=== PATIENT | male | born 1960 | race Caucasian/White ===

== ENCOUNTER 2018-05-16 12:07 | Inpatient (IN) ==
--- NOTE | 2018-05-16 09:43 | Discharge Summary ---
- NOTES TO OUTPATIENT PROVIDER Notes to Outpatient Provider: aCUTE BLOOD LOSS ANEMIA - FOLLOW UP H/H NEXT WEEK Orders not resulted at time of discharge: Pending orders 05/16/18 08:19 XR hip complete LT [XR] Routine H/H [Hemoglobin and Hematocrit] [HEME] Routine Date of Encounter: 05/19/18 Time of Encounter: 16:51 - Discharge Diagnosis (1) Status post total hip replacement, left Priority: Primary Status: Acute Comments: Opsite dressing, leave intact until first post-operative visit. If dressing becomes >50% saturated, contact office, remove dressing and place appropriate dressing in its place. Do not allow for dressing to get wet. Zipline/[place] in place, plan to remove at post-operative day #14-16. Total Joint Precautions x 6 weeks Apply cold therapy wrap 3-6x/day for 20 minutes at a time. Encourage ambulation throughout the day Use Incentive spirometer 10x/hour. Elevate affected extremity above heart as tolerated. Brace: Wear hip abductor brace at night x 6 weeks. (2) Arthritis of left hip Priority: Primary Status: Acute (3) Pacemaker Priority: Secondary Status: Chronic (4) Sick sinus syndrome Priority: Secondary Status: Chronic (5) HTN (hypertension) Priority: Secondary Status: Chronic Qualifiers: Hypertension type: essential hypertension Qualified Code(s): I10 - Essential (primary) hypertension (6) HLD (hyperlipidemia) Priority: Secondary Status: Chronic Qualifiers: Hyperlipidemia type: unspecified Qualified Code(s): E78.5 - Hyperlipidemia, unspecified (7) History of CVA (cerebrovascular accident) Priority: Secondary Status: Chronic Comments: 2013 (8) Obesity Priority: Secondary Status: Chronic Qualifiers: Obesity type: due to excess calories Obesity classification: adult class 1 (BMI 30 - 34.9) Serious obesity comorbidity presence: without serious comorbidity Body mass index: BMI 30.0-30.9 Qualified Code(s): E66.09 - Other obesity due to excess calories; Z68.30 - Body mass index (BMI) 30.0-30.9, adult (9) CAD (coronary artery disease) Priority: Secondary Status: Chronic Qualifiers: Coronary Disease-Associated Artery/Lesion type: false pass artery [place] vs. transplanted heart: false pass heart Associated angina: without angina Qualified Code(s): I25.10 - Atherosclerotic heart disease of false pass coronary artery without angina pectoris - Hospital Course Hospital course: Mr. Dillard is a 58 year old male, POD#3 - left THR 05/16 Patient seen at bedside, without complaints. A&O x 3 05/18 - Bleeding from incision - isreal placed. Afebrile, vital signs stable. Vital Signs Temp Pulse Resp BP Pulse Ox 05/19/18 11:00 97.9 F 87 16 138/79 96 05/19/18 06:41 97.6 F 83 16 144/87 98 05/19/18 03:01 97.9 F 79 16 146/84 97 05/19/18 00:02 98.5 F 82 16 150/89 99 05/18/18 18:38 98.2 F 97 15 130/79 95 Intake and Output 05/19/18 05/19/18 05/19/18 07:59 15:59 23:59 Intake Total 800 / 800 200 / 200 Output Total 900 / 900 Balance -100 / -100 200 / 200 Intake: Oral 800 / 800 200 / 200 Output: Urine 900 / 900 Other: Weight 94.5 kg Patient Weight 05/19/18 23:59 Weight 94.5 kg Labs reviewed. H/H - stable, asymptomatic ACUTE BLOOD LOSS ANEMIA - START IRON Short CBC 05/19/18 Range/Units 06:58 Hgb 9.5 L (12.9-16.9) g/dL Hct 27.0 L (37.5-50.1) % BMP 05/19/18 Range/Units 06:58 Sodium 133 L (136-145) mEq/L Potassium 3.4 L (3.5-5.1) mEq/L Chloride 99 (98-107) mEq/L Carbon Dioxide 27 (23-29) mEq/L BUN 9 (8-23) mg/dL Creatinine 0.71 (0.70-1.30) mg/dL Glucose 109 H (70-105) mg/dL Calcium 8.7 (8.6-10.3) mg/dL Pain control: adequate 05/17 - Added Flexeril 10mg TID Participating in PT. All questions and concerns addressed. Educated on use of incentive spirometer. Encouraged ambulation and proper hydration. Patient educated on post-operative restrictions and post-operative care. Assessment and plan: Continue with postoperative care Discharge plan: change BACK TO HOME TODAY, discharge TODAY WITH OP - Time Spent with Patient Total time spent providing and/or coordinating discharge services: - Discharge Medications Prescriptions: Ferrous Sulfate [Iron] 325 mg PO DAILY #30 tablet Home Medications: Aspirin Enteric Coated [Aspirin EC] 325 mg PO BID #20 tablet. 05/16/18 [Rx] Atorvastatin [Lipitor] 40 mg PO HS 05/16/18 [History] Cyclobenzaprine HCl 10 mg PO BID PRN 05/16/18 [History] Docusate [Colace] 100 mg PO BID 10 Days #20 capsule 05/16/18 [Rx] Losartan Potassium 25 mg PO DAILY 05/16/18 [History] Meclizine HCl [Verticalm] 25 mg PO Q8H PRN 05/16/18 [History] Metoprolol Tartrate 50 mg PO BID 05/16/18 [History] Omeprazole [PriLOSEC] 40 mg PO DAILY 05/16/18 [History] OxyCODONE Immed Rel [Roxicodone 5 MG] 5 mg PO Q6HR PRN 7 Days #28 tablet 05/16/18 [Rx] hydroCHLOROthiazide [Hydrochlorothiazide] 25 mg PO DAILY 05/16/18 [History] Ferrous Sulfate [Iron] 325 mg PO DAILY #30 tablet 05/19/18 [Rx] Allergies/Adverse Reactions: Allergy/AdvReac Type Severity Reaction Status Date / Time acetaminophen [From Tylenol] AdvReac Gastrointestinal Verified 05/16/18 13:34 Upset Date of admission: 05/16/18 Primary care physician: CAROLYN Cadena Anticipated date of discharge: 05/19/18 - Patient Status Disposition: Home, Self-Care Condition: Good Functional capacity at discharge: uses cane/walker Overall status at discharge: patient is progressing back to baseline - Discharge Instructions Instructions: Total Hip Replacement (DC), Precautions after Total Joint Replacement Surgery (DC) Follow Up With: Shannon Mosquera CNP [Primary Care Provider] -
[2018-05-16] MEDS ORDERED: CeFAZolin Syr 2,000MG/20 ML 2,000 MG/20 ML SYRINGE IVPB ONE (12:31)
[2018-05-16] MEDS ORDERED: Lidocaine -MPF 2% 2 ML VIAL ONE (12:38)
[2018-05-16] MEDS ORDERED: Dexamethasone 4 MG/ML VIAL ONE (12:38)
[2018-05-16] MEDS ORDERED: *HR* FentaNYL (PF) 100 MCG/2 ML VIAL ONE (12:38)
[2018-05-16] MEDS ORDERED: *HR* Midazolam HCl 2 MG/2 ML VIAL ONE (12:38)
[2018-05-16] MEDS ORDERED: *HR* Propofol 200 MG/20 ML VIAL IVP ONE ×2 (12:38→14:46)
[2018-05-16] MEDS ORDERED: Ondansetron 4 MG/2 ML VIAL ONE (12:38)
[2018-05-16] MEDS ORDERED: *HR* Succinylcholine 200 MG/10 ML VIAL IVP ONE (12:38)
--- NOTE | 2018-05-16 12:38 | Anesthesia Evaluation PreOp ---
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 History: CVA (2012 - visual impairment only) Other Medical History: GERD (dysphagia - benign laryngeal prominence causing difficulty swallowing), Other (BMI 30) Anesthesia History: No Prior Anesthetic Complications Medications and Allergies Aspirin Enteric Coated [Aspirin EC] 325 mg PO BID #20 tablet.dr 05/16/18 [Rx] Docusate [Colace] 100 mg PO BID 10 Days #20 capsule 05/16/18 [Rx] OxyCODONE Immed Rel [Roxicodone 5 MG] 5 mg PO Q6HR PRN 7 Days #28 tablet 05/16/18 [Rx] Allergy/AdvReac Type Severity Reaction Status Date / Time acetaminophen [From Tylenol] Allergy Gastrointestinal Verified 05/11/18 09:27 Upset - Meds/Allergy Pre-op Review Medications Reviewed: Yes Allergies Reviewed: Yes Beta Blockers on Current Med List: Yes If Beta Blockers taken, Date/Time (Last Dose taken): 05-16-18 metoprolol attempted to swallow at 8:30 am Anesthesia Results - Labs Laboratory Tests 05/11/18 05/11/18 05/11/18 10:15 10:15 10:15 WBC 6.7 Hgb 15.5 Hct 44.8 Plt Count 317 PT 11.0 INR 1.0 APTT 29.6 Sodium 136 Potassium 4.0 Chloride 100 Carbon Dioxide 25 BUN 8 Creatinine 0.88 Est GFR ( Amer) > 60 Est GFR (Non-Af Amer) > 60 BUN/Creatinine Ratio 9 - Imaging EKG: image reviewed ( stress test EKG NSR) Additional studies: stress test: Indications: dyspnea, Coronary Artery Disease, Pre op Impression: No ischemia or infarct on perfusion study. Technical artifact present (fixed mid anterior perfusion defect of minimal size and mild intensity). Stress LVEF 69%. Pharmacologic stress ECG non-diagnostic for ischemia. Anesthesia Exam Last Vital Signs Temp 97.7 F 05/16/18 12:27 Pulse 86 05/16/18 12:27 Resp 18 12/10/18 12:27 BP 155/86 05/16/18 12:27 Pulse Ox 98 05/16/18 12:27 Weight: 92 kg NPO (# of Hours): > 8 hrs - HEENT Pupil (Motor): Pupils equal, EOMI Mallampati: III Teeth: Edentulous Oral Opening: Greater than 3 - WORKFORCE STAFFING ADVISOR LOC: Oriented - Cardiac Rhythm: Regular Murmur: None - Pulmonary Breath Sounds: bilateral Clear Respiratory Effort: Symmetrical Anesthesia Assess/Plan ASA Score: 3 Level of consciousness: Cooperative Anesthetic Plan: Spinal Monitoring Plan: Standard Monitors Recovery Plan: PACU
[2018-05-16] MEDS ORDERED: Ringers Solution, Lactated 1,000 ML IVC SCH ×2 (12:45→16:59)
--- NOTE | 2018-05-16 13:05 | History & Physical Report ---
Date of Encounter: 05/16/18 Time of Encounter: 13:05 24 Hour HP Update - Instructions Instructions: If the History and Physical is less than 30 days old and was completed prior to A.M. admission and or procedure and has NOT been updated on calendar day of procedure please complete this update prior to performing procedure. - Update Patient reports changes in Medical Condition: No Changes in examination, assessment, or condition: No Changes in Medication: No Preop tests/diagnostics Reviewed: Yes Surgery Remains Indicated: Yes Consent for Planned Operative Procedure(s) Verified: Yes - Pre-Operative Checklist Preoperative Checklist Indicated: No Prophylactic Antibiotic Ordered: Yes Is VTE Prophylaxis Indicated?: Yes
[2018-05-16] MEDS ORDERED: Lidocaine -MPF 1% 5 ML AMPUL ONE (13:22)
[2018-05-16] MEDS ORDERED: *HR* Morphine Sulfate/PF 10 MG/10 ML AMPUL ONE (13:22)
[2018-05-16] MEDS ORDERED: Ethanol\\Acetic Acid\\Na Ace\\Ben 1,000 ML IRRIG.SOLN IR ONE (13:33)
[2018-05-16] MEDS ORDERED: *HR* Meperidine 25 MG/ML SYRINGE IVP PRN (14:08)
[2018-05-16] MEDS ORDERED: *HR* OxyCODONE Immed Rel 5 MG TABLET PO PRN ×2 (14:08→16:59)
[2018-05-16] MEDS ORDERED: *HR* Promethazine 25 MG/ML VIAL IVP PRN ×2 (14:08→21:07)
[2018-05-16] MEDS ORDERED: Ondansetron 4 MG/2 ML VIAL IVP ONE (14:08)
[2018-05-16] MEDS ORDERED: *HR* Labetalol 20 MG/4 ML SYRINGE IVP PRN (14:08)
--- NOTE | 2018-05-16 14:13 | Anesthesia Procedures ---
Date of Encounter: 05/16/18 Time of Encounter: 13:30 Procedures: Anesthesia - Epidural/Spinal Patient ID/Chart reviewed: Yes Patient examined: Yes Consent Obtained: Yes Supplemental Oxygen: Nasal Cannula Supplemental Oxygen Rate (L/min): 3 Sedation: Versed (mg): 2 Sedation: Fentanyl (mcg): 50 Site Prep: 0.5% Chlorhexidine/Alcohol Patient position: upright Local Anesthetic: Lidocaine 1% Amount of Local Anesthetic used: 3 Interspace Used: L3-L4 Loss of Resistance (SHARATH): Yes Blood: No CSF: Yes Paresthesia: No Spinal Needle Gauge: 24 Spinal Dose: 2.5ml 0.5% marcaine with 200mcg duramorph
[2018-05-16] MEDS ORDERED: *HR* PHENYLEPHRINE 1,000 MCG/10 ML SYRINGE IVP ONE (14:19)
--- NOTE | 2018-05-16 14:54 | Orthopedic Operative Note ---
Date of procedure: 05/16/18 Pre-op diagnosis: Left hip arthritis Post-op diagnosis: same Procedure: Procedure: Left Total Hip Replacment robotic-assisted Estimated blood loss: 200 cc Hardware: Metal and polyethylene replacement. Maggi DM Cup: 58 cup Femoral size 12 stem Head:4 head with Shannon Procedural Notes: Grade 4 arthritic changes femoral head acetabular socket, procedure performed with robotic assistance. 5 degrees short as measured by preoperative CT scan Operative procedure: The patient was brought to the operating room and placed on the operating room table. After general anesthesia was administered the patient was placed in the lateral decubitus position with the operative leg up. All pressure points were padded appropriately and the head was stabilized in the neutral position. The operative extremity was prepped and draped in the sterile surgical fashion patient received IV antibiotic prior to skin incision. 3 Steinmann pins were placed in the iliac crest 3 cm proximal to the anterior superior iliac spine this was for the robotic-assisted sensor. This was done through a small 2 cm incision. A standard posterior approach is made to the operative hip, the incision was made through the skin and subcutaneous tissue hemostasis was obtained with Bovie cautery. Using careful sharp dissection the fascia was identified and incised exposing the external rotators. The greater trochanter was marked, and length was measured at this time utilizing robotic assistance. The external rotators were released off the greater trochanter and tagged with #2 FiberWire suture. The capsule was T'd open and the hip was brought into internal rotation. Patient noted to have grade 4 arthritic changes femoral head. The femoral neck cut was made at the appropriate level roughly 15 mm proximal to the lesser tr ochanter aced on preoperative templating. An anterior capsulotomy was performed for the anterior retractor. Soft tissues removed from the acetabulum. Patient noted to have grade 4 arthritic changes acetabulum. The acetabulum reference point was confirmed. The acetabulum was then mapped with robotic assistance. Based on the preoperative plan the acetabulum was reamed in one step with a 57 reamer. The 58 acetabulum was impacted with robotic assistance and 36 degrees of abduction and 17 degrees of anteversion. The hip was brought back in to internal rotation and prepared with the box cutt er followed by the canal finder followed by the reaming process to a size 11/12 broaching process in 20 degrees anteversion. It was broached up to the appropriate size 12 Trial reduction revealed leg lengths close to normal. The femoral implant was impacted in place in 20 degrees of anteversion. Trial reduction found the hip to be stable with 4 head and Shannon. The trials were removed and the real implants were impacted in place. The hip was reduced, patient had robotic confirmed leg length of 12 mm longer than the contralateral side. The hip had excellent stability with forward flexion to 90 degrees adduction of 30 degrees and internal rotation of 60 degrees. The hip had no shuck. The hip sat with an antibacterial solution. It was irrigated out with 2 L of pulse irrigation. The Steinmann pins were removed. The hip was closed by the PA. The deep tissue was irrigated and closed deep with #1 PDS suture superficially with 0 PDS suture and skin was closed with Dermabond and zip tie. The patient was placed in a sterile dressing and abduction pillow. The patient was extubated and transferred to the recovery room in stable condition. Anesthesia: spinal Surgeon: Jem Brandt Was there an promotions assistant present: Yes Information Security Engineer: Eve Echavarria Estimated blood loss (cc): 200 Condition: stable Disposition: PACU
[2018-05-16] MEDS ORDERED: Propofol 500 MG/50 ML INFUS..BTL ONE (15:11)
[2018-05-16] MEDS ORDERED: Temazepam 15 MG CAPSULE PO PRN (16:59)
[2018-05-16] MEDS ORDERED: *HR* OxyCODONE/APAP 5/325 TABLET PO PRN (16:59)
[2018-05-16] MEDS ORDERED: Sennosides 8.6 MG TABLET PO PRN (16:59)
[2018-05-16] MEDS ORDERED: MOM Conc 10 ML UD.LIQ PO PRN (16:59)
[2018-05-16] MEDS ORDERED: Naloxone 0.4 MG/ML INJ IVP PRN (16:59)
[2018-05-16] MEDS ORDERED: Ondansetron 4 MG/2 ML VIAL IVP PRN (16:59)
[2018-05-16] MEDS ORDERED: *HR* Enoxaparin 30 MG/0.3 ML SYRINGE SQ SCH (18:00)
[2018-05-16 18:23] LABS: Hematocrit 38.4 % (37.5-50.1)
[2018-05-16 18:24] LABS: Hemoglobin 13.2 g/dL (12.9-16.9)
[2018-05-16] MEDS: Ascorbic Acid 500 MG TABLET PO SCH (19:37)
[2018-05-16] MEDS: *HR* Enoxaparin 30 MG/0.3 ML SYRINGE SQ SCH (19:38)
[2018-05-16] MEDS ORDERED: OXYCODONE Oral CONC 10 MG/0.5 ML ORAL.SYG SL PRN (21:08)
[2018-05-16] MEDS: OXYCODONE Oral CONC 10 MG/0.5 ML ORAL.SYG SL PRN (22:44)
[2018-05-17] MEDS: OXYCODONE Oral CONC 10 MG/0.5 ML ORAL.SYG SL PRN ×2 (05:40→20:23)
[2018-05-17] MEDS: *HR* Enoxaparin 30 MG/0.3 ML SYRINGE SQ SCH ×2 (06:12→17:38)
--- NOTE | 2018-05-17 06:14 | Orthopedics Progress Note ---
Date of Encounter: 05/17/18 Time of Encounter: 06:13 Subjective Interval history: Patient was seen this morning doing well without complaints. Afebrile vital signs stable. Operative extremity: Neurovascularly intact Dressing bloody change and staple Calves nontender Assessment and plan: Continue with postoperative care hematocrit 38 Objective Vital signs: Vital Signs Temp Pulse Resp BP Pulse Ox 05/17/18 03:46 98.2 F 88 22 132/79 96 05/16/18 23:24 97.6 F 102 24 132/89 96 05/16/18 19:32 119 16 131/85 96 05/16/18 19:12 98.3 F 86 20 125/85 97 05/16/18 16:06 75 16 124/75 100 05/16/18 15:57 97.8 F 65 16 136/79 100 05/16/18 15:47 71 16 116/80 100 05/16/18 15:37 98.0 F 61 16 125/72 100 05/16/18 15:27 61 16 112/74 99 05/16/18 15:17 97.1 F L 62 16 116/90 100 05/16/18 13:20 72 16 139/87 100 05/16/18 12:27 97.7 F 86 18 155/86 98 Intake and Output 05/16/18 05/16/18 05/17/18 15:59 23:59 07:59 Intake Total 1180 / 1180 800 / 800 Output Total 200 / 200 400 / 400 150 / 150 Balance -200 / -200 780 / 780 650 / 650 Intake: IV Fluids 100 / 100 Ancef 2,000 MG In 0.9 % Sodium 100 / 100 Chloride 100 ML @ 200 mls/hr IVPB Q8H [facility] Rx#:[id number] Oral 1180 / 1180 700 / 700 Output: Urine 0 / 0 150 / 150 Estimated Blood Loss 200 / 200 Straight Cath 400 / 400 Other: Weight 92.079 kg 92.45 kg Patient Weight 05/17/18 23:59 Weight 92.45 kg - Labs CBC & BMP: 05/16/18 18:06 Consult Discharge Plan - Plan Referrals: Shannon Mosquera, OPTICAL TECHNICIAN [Primary Care Provider] -
--- NOTE | 2018-05-17 07:31 | Event Note ---
Date of Encounter: 05/17/18 Time of Encounter: 07:30 PCR - POD#. 1 - left THR 05/16 Patient seen at bedside, without complaints. A&O x 3 Bleeding from incision - isreal placed. Afebrile, vital signs stable. Vital Signs Temp Pulse Resp BP Pulse Ox 05/17/18 06:50 98.4 F 86 20 138/76 96 05/17/18 03:46 98.2 F 88 22 132/79 96 05/16/18 23:24 97.6 F 102 24 132/89 96 05/16/18 19:32 119 16 131/85 96 05/16/18 19:12 98.3 F 86 20 125/85 97 05/16/18 16:06 75 16 124/75 100 05/16/18 15:57 97.8 F 65 16 136/79 100 05/16/18 15:47 71 16 116/80 100 05/16/18 15:37 98.0 F 61 16 125/72 100 05/16/18 15:27 61 16 112/74 99 05/16/18 15:17 97.1 F L 62 16 116/90 100 05/16/18 13:20 72 16 139/87 100 05/16/18 12:27 97.7 F 86 18 155/86 98 Intake and Output 05/16/18 05/16/18 05/17/18 15:59 23:59 07:59 Intake Total 1180 / 1180 800 / 800 Output Total 200 / 200 400 / 400 150 / 150 Balance -200 / -200 780 / 780 650 / 650 Intake: IV Fluids 100 / 100 Ancef 2,000 MG In 0.9 % Sodium 100 / 100 Chloride 100 ML @ 200 mls/hr IVPB Q8H [facility] Rx#:[id number] Oral 1180 / 1180 700 / 700 Output: Urine 0 / 0 150 / 150 Estimated Blood Loss 200 / 200 Straight Cath 400 / 400 Other: Weight 92.079 kg 92.45 kg Patient Weight 05/17/18 23:59 Weight 92.45 kg Labs reviewed. H/H - stable, asymptomatic Pain control: adequate 05/17 - Added Flexeril 10mg TID Participating in PT. All questions and concerns addressed. Educated on use of incentive spirometer. Encouraged ambulation and proper hydration. Patient educated on post-operative restrictions and post-operative care. Assessment and plan: Continue with postoperative care Discharge plan: Home, with OP, discharge likely in AM on 05/18. . Short CBC 05/17/18 05/16/18 Range/Units 06:17 18:06 Hgb 11.0 L D 13.2 D (12.9-16.9) g/dL Hct 31.7 L 38.4 (37.5-50.1) %
[2018-05-17 07:40] LABS: Hematocrit 31.7 % (37.5-50.1)
[2018-05-17] MEDS: traMADol 50 MG TABLET PO PRN (08:13)
[2018-05-17] MEDS: hydroCHLOROthiazide 25 MG TABLET PO SCH (08:14)
[2018-05-17] MEDS: Ascorbic Acid 500 MG TABLET PO SCH ×2 (08:14→17:38)
[2018-05-17] MEDS: Multivit/Ca/Min/Fe/FA 1 TAB TABLET PO SCH (08:14)
[2018-05-17] MEDS: Aspirin Enteric Coated 81 MG Tablet PO SCH (08:14)
[2018-05-17 09:21] LABS: BUN/Creatinine Ratio 17 (6-26); Blood Urea Nitrogen 15 mg/dL (8-23); Calcium 8.9 mg/dL (8.6-10.3); Carbon Dioxide 26 mEq/L (23-29); Chloride 100 mEq/L (98-107); Glucose 122 mg/dL (70-105); Osmolality,Calculated 286 (280-300); Potassium 4.2 mEq/L (3.5-5.1); Sodium 137 mEq/L (136-145); eGFR For Non-African Americans > 60 (> 60)
[2018-05-18] MEDS: OXYCODONE Oral CONC 10 MG/0.5 ML ORAL.SYG SL PRN ×2 (03:27→20:52)
[2018-05-18] MEDS: *HR* Enoxaparin 30 MG/0.3 ML SYRINGE SQ SCH ×2 (05:27→17:04)
[2018-05-18 07:03] LABS: Hematocrit 30.8 % (37.5-50.1); Hemoglobin 10.6 g/dL (12.9-16.9)
[2018-05-18 07:11] LABS: BUN/Creatinine Ratio 12 (6-26); Blood Urea Nitrogen 10 mg/dL (8-23); Carbon Dioxide 29 mEq/L (23-29); Chloride 96 mEq/L (98-107); Glucose 114 mg/dL (70-105); Osmolality,Calculated 276 (280-300); Potassium 3.4 mEq/L (3.5-5.1); Sodium 133 mEq/L (136-145); eGFR For Non-African Americans > 60 (> 60)
[2018-05-18] MEDS: hydroCHLOROthiazide 25 MG TABLET PO SCH (07:44)
[2018-05-18] MEDS: Aspirin Enteric Coated 81 MG Tablet PO SCH (07:44)
[2018-05-18] MEDS: Multivit/Ca/Min/Fe/FA 1 TAB TABLET PO SCH (07:44)
[2018-05-18] MEDS: Ascorbic Acid 500 MG TABLET PO SCH ×2 (07:44→17:03)
--- NOTE | 2018-05-18 07:59 | Orthopedics Progress Note ---
Date of Encounter: 05/18/18 Time of Encounter: 07:59 Subjective Interval history: Patient was seen this morning doing well without complaints. Afebrile vital signs stable. Operative extremity: Neurovascularly intact Dressing bloody change and staple Calves nontender Assessment and plan: Continue with postoperative care hematocrit 3 Hematocrit 30 Objective Vital signs: Vital Signs Temp Pulse Resp BP Pulse Ox 05/18/18 06:29 98.1 F 83 16 134/78 96 05/18/18 03:24 98.3 F 77 15 127/83 96 05/17/18 23:18 98.3 F 81 16 124/82 96 05/17/18 18:17 98.0 F 83 15 134/79 93 05/17/18 15:05 98.2 F 83 16 134/86 97 Intake and Output 05/17/18 05/17/18 05/18/18 15:59 23:59 07:59 Intake Total 480 / 480 150 / 150 100 / 100 Output Total 650 / 650 1750 / 1750 250 / 250 Balance -170 / -170 -1600 / -1600 -150 / -150 Intake: Oral 480 / 480 150 / 150 100 / 100 Output: Urine 650 / 650 1750 / 1750 250 / 250 Other: Meal Lunch Percent of Meal Consumed 50% Weight 93.5 kg Patient Weight 05/18/18 23:59 Weight 93.5 kg - Labs CBC & BMP: 05/18/18 05:38 05/18/18 05:38 Labs: Abnormal lab results Hgb 10.6 g/dL (12.9-16.9) L 05/18/18 05:38 Hct 30.8 % (37.5-50.1) L 05/18/18 05:38 Sodium 133 mEq/L (136-145) L 05/18/18 05:38 Potassium 3.4 mEq/L (3.5-5.1) L 05/18/18 05:38 Chloride 96 mEq/L (98-107) L 05/18/18 05:38 Glucose 114 mg/dL (70-105) H 05/18/18 05:38 Calculated Osmolality 276 (280-300) L 05/18/18 05:38 Consult Discharge Plan - Plan Referrals: Shannon Mosquera, LAUNDROMAT MANAGER [Primary Care Provider] -
--- NOTE | 2018-05-18 13:01 | Event Note ---
Date of Encounter: 05/18/18 Time of Encounter: 12:58 PCR - POD#2 - left THR 05/16 Patient seen at bedside, without complaints. A&O x 3 05/18 - Bleeding from incision - isreal placed. Afebrile, vital signs stable. Labs reviewed. H/H - stable, asymptomatic Pain control: adequate 05/17 - Added Flexeril 10mg TID Participating in PT. All questions and concerns addressed. Educated on use of incentive spirometer. Encouraged ambulation and proper hydration. Patient educated on post-operative restrictions and post-operative care. Assessment and plan: Continue with postoperative care Discharge plan: change to ECF placement, discharge likely Sunday 05/20 Vital Signs Temp Pulse Resp BP Pulse Ox 05/18/18 10:04 98.4 F 87 16 139/81 95 05/18/18 06:29 98.1 F 83 16 134/78 96 05/18/18 03:24 98.3 F 77 15 127/83 96 05/17/18 23:18 98.3 F 81 16 124/82 96 05/17/18 18:17 98.0 F 83 15 134/79 93 05/17/18 15:05 98.2 F 83 16 134/86 97 Intake and Output 05/17/18 05/18/18 05/18/18 23:59 07:59 15:59 Intake Total 150 / 150 100 / 100 240 / 240 Output Total 1750 / 1750 550 / 550 Balance -1600 / -1600 -450 / -450 240 / 240 Intake: Oral 150 / 150 100 / 100 240 / 240 Output: Urine 1750 / 1750 550 / 550 Other: # Voids 1 Weight 93.5 kg Patient Weight 05/18/18 23:59 Weight 93.5 kg Short CBC 05/18/18 Range/Units 05:38 Hgb 10.6 L (12.9-16.9) g/dL Hct 30.8 L (37.5-50.1) % BMP 05/18/18 Range/Units 05:38 Sodium 133 L (136-145) mEq/L Potassium 3.4 L (3.5-5.1) mEq/L Chloride 96 L (98-107) mEq/L Carbon Dioxide 29 (23-29) mEq/L BUN 10 (8-23) mg/dL Creatinine 0.81 (0.70-1.30) mg/dL Glucose 114 H (70-105) mg/dL Calcium 9.0 (8.6-10.3) mg/dL .
--- NOTE | 2018-05-18 13:06 | Physician Discharge Referral ---
ExtendedCare Referral Info Transfer To: [facility] Provider in Charge: Provider in Charge after Transfer: PCP Institutional Level of Care: Skilled - Diagnosis (1) Status post total hip replacement, left Priority: Primary Status: Acute (2) Arthritis of left hip Priority: Primary Status: Acute (3) Pacemaker Priority: Secondary Status: Chronic (4) Sick sinus syndrome Priority: Secondary Status: Chronic (5) HTN (hypertension) Priority: Secondary Status: Chronic (6) HLD (hyperlipidemia) Priority: Secondary Status: Chronic (7) History of CVA (cerebrovascular accident) Priority: Secondary Status: Chronic (8) Obesity Priority: Secondary Status: Chronic (9) CAD (coronary artery disease) Priority: Secondary Status: Chronic Expected Duration of Placement: < 30 days Prognosis: Good Aware of Diagnosis: Patient Aware of Prognosis: Patient - Transfer Medications Home Medications: Aspirin Enteric Coated [Aspirin EC] 325 mg PO BID #20 tablet. 05/16/18 [Rx] Aspirin [Lo-Dose Aspirin EC] 81 mg PO DAILY 05/16/18 [History] Atorvastatin [Lipitor] 40 mg PO HS 05/16/18 [History] Cyclobenzaprine HCl 10 mg PO BID PRN 05/16/18 [History] Docusate [Colace] 100 mg PO BID 10 Days #20 capsule 05/16/18 [Rx] Losartan Potassium 25 mg PO DAILY 05/16/18 [History] Meclizine HCl [Verticalm] 25 mg PO Q8H PRN 05/16/18 [History] Metoprolol Tartrate 50 mg PO BID 05/16/18 [History] Omeprazole [PriLOSEC] 40 mg PO DAILY 05/16/18 [History] OxyCODONE Immed Rel [Roxicodone 5 MG] 5 mg PO Q6HR PRN 7 Days #28 tablet 05/16/18 [Rx] hydroCHLOROthiazide [Hydrochlorothiazide] 25 mg PO DAILY 05/16/18 [History] Allergies/Adverse Reactions: Allergy/AdvReac Type Severity Reaction Status Date / Time acetaminophen [From Tylenol] AdvReac Gastrointestinal Verified 05/16/18 13:34 Upset - Respiratory Orders Smoking Cessation: Smoking cessation has been advised. For more information, call the [place] Tobacco Quit Line at 5-020-SDQU-NOW. - Mobility Orders Chair, Ambulate - Rehabiliation Orders Rehab Potential: Good Rehab Orders: ROM Exercises, Evaluation for Physical Therapy, Evaluation for Occupational Therapy Other: Opsite dressing, leave intact until first post-operative visit. If dressing becomes >50% saturated, contact office, remove dressing and place appropriate dressing in its place. Do not allow for dressing to get wet. Zipline/Aracelis in place, plan to remove at post-operative day #14-16. Total Joint Precautions x 6 weeks Apply cold therapy wrap 3-6x/day for 20 minutes at a time. Encourage ambulation throughout the day Use Incentive spirometer 10x/hour. Elevate affected extremity above heart as tolerated. Brace: Wear hip abductor brace at night x 6 weeks. - Treatments Skin tear care topically daily PRN per policy, May check for fecal impaction rectally daily PRN, Fleet enema rectally every other day PRN cleansing purposes - Diet Orders Regular CERTIFICATION: I certify that the transfer of the above named patient to an Extended Care Facility is necessary for the continuing treatment of the diagnosis listed. The above information is true and accurate reflection of patient's current condition. Confidential - Redisclosure prohibited without a patient's written consent.
[2018-05-19] MEDS: OXYCODONE Oral CONC 10 MG/0.5 ML ORAL.SYG SL PRN ×2 (03:08→09:07)
[2018-05-19] MEDS: traMADol 50 MG TABLET PO PRN (05:41)
[2018-05-19] MEDS: *HR* Enoxaparin 30 MG/0.3 ML SYRINGE SQ SCH (05:42)
[2018-05-19 07:27] LABS: Hemoglobin 9.5 g/dL (12.9-16.9)
[2018-05-19 07:41] LABS: BUN/Creatinine Ratio 13 (6-26); Blood Urea Nitrogen 9 mg/dL (8-23); Calcium 8.7 mg/dL (8.6-10.3); Carbon Dioxide 27 mEq/L (23-29); Chloride 99 mEq/L (98-107); Glucose 109 mg/dL (70-105); Osmolality,Calculated 275 (280-300); Potassium 3.4 mEq/L (3.5-5.1); Sodium 133 mEq/L (136-145); eGFR For Non-African Americans > 60 (> 60)
--- NOTE | 2018-05-19 08:23 | Orthopedics Progress Note ---
Date of Encounter: 05/19/18 Time of Encounter: 08:22 Subjective Interval history: Patient was seen this morning doing well without complaints. Afebrile vital signs stable. Operative extremity: Neurovascularly intact Dressing bloody change and staple Calves nontender Assessment and plan: Continue with postoperative care plan for discharge today Objective Vital signs: Vital Signs Temp Pulse Resp BP Pulse Ox 05/19/18 06:41 97.6 F 83 16 144/87 98 05/19/18 03:01 97.9 F 79 16 146/84 97 05/19/18 00:02 98.5 F 82 16 150/89 99 05/18/18 18:38 98.2 F 97 15 130/79 95 05/18/18 15:40 100.1 F H 88 16 129/73 98 05/18/18 10:04 98.4 F 87 16 139/81 95 Intake and Output 05/18/18 05/19/18 05/19/18 23:59 07:59 15:59 Intake Total 690 / 690 800 / 800 Output Total 800 / 800 900 / 900 Balance -110 / -110 -100 / -100 Intake: Oral 690 / 690 800 / 800 Output: Urine 800 / 800 900 / 900 Other: Meal Dinner Percent of Meal Consumed 100% Weight 94.5 kg Patient Weight 05/19/18 23:59 Weight 94.5 kg - Labs CBC & BMP: 05/19/18 06:58 05/19/18 06:58 Labs: Abnormal lab results Hgb 9.5 g/dL (12.9-16.9) L 05/19/18 06:58 Hct 27.0 % (37.5-50.1) L 05/19/18 06:58 Sodium 133 mEq/L (136-145) L 05/19/18 06:58 Potassium 3.4 mEq/L (3.5-5.1) L 05/19/18 06:58 Glucose 109 mg/dL (70-105) H 05/19/18 06:58 Calculated Osmolality 275 (280-300) L 05/19/18 06:58 Consult Discharge Plan - Plan Referrals: Shannon Mosquera, STAFF ASSISTANT [Primary Care Provider] -
[2018-05-19] MEDS: Multivit/Ca/Min/Fe/FA 1 TAB TABLET PO SCH (09:05)
[2018-05-19] MEDS: hydroCHLOROthiazide 25 MG TABLET PO SCH (09:05)
[2018-05-19] MEDS: Ascorbic Acid 500 MG TABLET PO SCH (09:06)
[2018-05-19] MEDS: Aspirin Enteric Coated 81 MG Tablet PO SCH (09:06)
[2018-05-19 12:22] VITALS: BP 138/79
== END 2018-05-19 13:09 | disposition home or self-care (01) | DRG 301 ==
LOC: SAMDAY 12:07 → 3NENU 16:17
PROVIDERS: ADMIT Orthopaedic Surgery; ATTEND Orthopaedic Surgery

== ENCOUNTER 2019-06-01 21:42 | Inpatient (IN) ==
[2019-06-02] MEDS ORDERED: Ondansetron ODT 4 MG TAB.RAPDIS SL PRN (05:34)
[2019-06-02] MEDS ORDERED: Nicotine 2 MG GUM BC PRN (05:34)
[2019-06-02] MEDS ORDERED: Naloxone 0.4 MG/ML INJ IVP PRN (05:34)
[2019-06-02] MEDS ORDERED: 0.9 % Sodium Chloride 1,000 ML IVC SCH (05:45)
[2019-06-02 06:15] LABS: Prothrombin Time 11.3 Seconds (9.4-12.1)
[2019-06-02 06:18] LABS: Basophils # 0.1 K/mcL (0.0-0.2); Basophils % 0.6 %; Hematocrit 39.6 % (37.5-50.1); Hemoglobin 14.3 g/dL (12.9-16.9); Immature Granulocytes % 0.3 % (0-4); Lymphocytes # 1.4 K/mcL (0.6-4.6); Lymphocytes % 14.8 %; Mean Corpuscular HGB Conc 36.1 g/dL (31.6-35.5); Mean Corpuscular Hemoglobin 32.6 pg (28.0-33.3); Mean Corpuscular Volume 90.2 fL (83.0-100.0); Mean Platelet Volume 11.2 fL (9.4-12.4); Monocytes # 0.9 K/mcL (0.0-1.3); Monocytes % 9.6 %; Neutrophils # 7.1 K/mcL (1.6-8.9); Platelet Count 237 K/mcL (140-400); Red Blood Count 4.39 M/mcL (4.19-5.50); Red Cell Distribution Width 12.2 % (11.5-14.5); Segmented Neutrophils % 74.7 %; White Blood Count 9.5 K/mcL (4.3-11.1)
[2019-06-02 06:29] LABS: Alanine Aminotransferase 17 Units/L (7-52); Albumin 4.2 g/dL (3.5-5.7); Albumin/Globulin Ratio 1.6 (1.1-2.2); Alkaline Phosphatase 59 Units/L (34-104); Aspartate Amino Transferase 19 Units/L (13-39); BUN/Creatinine Ratio 15 (6-26); Bilirubin,Total 1.1 mg/dL (0.3-1.0); Blood Urea Nitrogen 13 mg/dL (8-23); Calcium 9.5 mg/dL (8.6-10.3); Carbon Dioxide 26 mEq/L (23-29); Chloride 94 mEq/L (98-107); Globulin 2.7 g/dL (2.4-3.5); Glucose 91 mg/dL (70-105); Magnesium 2.2 mg/dL (1.6-2.6); Osmolality,Calculated 276 (280-300); Phosphorous 3.4 mg/dL (2.7-4.5); Potassium 3.9 mEq/L (3.5-5.1); Sodium 133 mEq/L (136-145); Total Protein 6.9 g/dL (6.4-8.9); eGFR For African Americans > 60 (> 60); eGFR For Non-African Americans > 60 (> 60)
[2019-06-02 06:33] LABS: Chol/HDL Ratio 5.1 (0-4.9); Cholesterol 185 mg/dL (< 200); HDL Cholesterol 36 mg/dL (40-59); LDL Cholesterol,Calculated 130 mg/dL (0-99); Triglycerides 97 mg/dL (< 150); Troponin I < 0.03 ng/mL (< 0.04)
[2019-06-02 06:42] LABS: Bilirubin,Urine Negative (Negative); Blood,Urine Negative (Negative); Clarity,Urine Clear (Clear); Color,Urine Yellow (Yellow); Glucose,Urine (UA) Normal (Normal); Ketones,Urine 40 mg/dL (Negative); Leukocyte Esterase,Urine Negative (Negative); Nitrite,Urine Negative (Negative); PH,Urine 6.5 pH Units (5.0-8.0); Protein,Urine Negative (Neg-Trace); Specific Gravity,Urine 1.006 (1.010-1.025); Urobilinogen,Urine Normal (Normal)
[2019-06-02] MEDS ORDERED: *HR* Enoxaparin 40 MG/0.4 ML SYRINGE SQ SCH (07:00)
[2019-06-02] MEDS: Potassium Chloride Elixir 20 MEQ/15 ML UDC PO SCH ×2 (09:47→20:21)
[2019-06-02] MEDS: Nicotine 14 MG PATCH.TD24 TD SCH (09:48)
[2019-06-02] MEDS: *HR* Heparin 5,000 UNIT/ML VIAL SQ SCH (19:19)
[2019-06-03] MEDS ORDERED: *HR* OxyCODONE Immed Rel 5 MG TABLET PO ONE (03:40)
[2019-06-03] MEDS: *HR* Heparin 5,000 UNIT/ML VIAL SQ SCH ×2 (05:52→18:05)
[2019-06-03 08:18] LABS: Estimated Average Glucose 94 mg/dl
[2019-06-03] MEDS: Nicotine 14 MG PATCH.TD24 TD SCH (08:19)
[2019-06-03] MEDS ORDERED: Ketorolac 15 MG/ML VIAL IVP PRN (11:41)
[2019-06-03] MEDS: *HR* OxyCODONE Immed Rel 5 MG TABLET PO PRN ×2 (13:51→20:17)
[2019-06-04] MEDS: *HR* OxyCODONE Immed Rel 5 MG TABLET PO PRN ×4 (02:11→20:29)
[2019-06-04] MEDS: *HR* Heparin 5,000 UNIT/ML VIAL SQ SCH ×2 (05:09→16:54)
[2019-06-04] MEDS: Nicotine 14 MG PATCH.TD24 TD SCH (08:07)
[2019-06-04 09:13] LABS: Hematocrit 39.9 % (37.5-50.1); Hemoglobin 14.3 g/dL (12.9-16.9); Mean Corpuscular HGB Conc 35.8 g/dL (31.6-35.5); Mean Corpuscular Volume 92.1 fL (83.0-100.0); Mean Platelet Volume 11.9 fL (9.4-12.4); Platelet Count 231 K/mcL (140-400); Red Blood Count 4.33 M/mcL (4.19-5.50); Red Cell Distribution Width 12.4 % (11.5-14.5); White Blood Count 8.4 K/mcL (4.3-11.1)
[2019-06-04] MEDS ORDERED: *HR* FentaNYL (PF) 100 MCG/2 ML VIAL IVP PRN (12:15)
[2019-06-04] MEDS ORDERED: Acetaminophen IV 1,000 MG/100 ML INFUS..BTL IVPB ONE (12:15)
[2019-06-04] MEDS ORDERED: *HR* Meperidine 25 MG/ML SYRINGE IVP PRN (12:16)
[2019-06-04] MEDS ORDERED: *HR* Promethazine 25 MG/ML VIAL IVP PRN (12:16)
[2019-06-04] MEDS ORDERED: Clindamycin 900 MG/50 ML 900 MG/50 ML IV.SOLN IVPB ONE (17:00)
[2019-06-04] MEDS ORDERED: *HR* FentaNYL (PF) 100 MCG/2 ML VIAL ONE (20:44)
[2019-06-04] MEDS ORDERED: *HR* Propofol 200 MG/20 ML VIAL IVP ONE (20:49)
[2019-06-04] MEDS ORDERED: *HR* Rocuronium Bromide 50 MG/5 ML VIAL ONE (22:50)
[2019-06-04] MEDS ORDERED: Ondansetron 4 MG/2 ML VIAL ONE (22:50)
[2019-06-04] MEDS ORDERED: *HR* Succinylcholine 200 MG/10 ML VIAL IVP ONE (22:50)
[2019-06-04] MEDS ORDERED: Dexamethasone 4 MG/ML VIAL ONE (22:50)
[2019-06-04] MEDS ORDERED: Lidocaine -MPF 2% 2 ML VIAL ONE ×2 (22:50)
[2019-06-04] MEDS ORDERED: EPHEDrine 50 MG/ML VIAL ONE (23:45)
[2019-06-05] MEDS ORDERED: *HR* Labetalol 20 MG/4 ML SYRINGE IVP PRN
[2019-06-05] MEDS ORDERED: Ondansetron 4 MG/2 ML VIAL IVP PRN
[2019-06-05] MEDS ORDERED: *HR* FentaNYL (PF) 100 MCG/2 ML VIAL ONE (00:28)
[2019-06-05] MEDS ORDERED: *HR* Labetalol 20 MG/4 ML SYRINGE IVP ONE (02:00)
[2019-06-05] MEDS: *HR* OxyCODONE Immed Rel 5 MG TABLET PO PRN ×4 (03:10→16:38)
[2019-06-05] MEDS: *HR* HYDROmorphone (PF) 1 MG/ML SYRINGE IVP PRN ×3 (03:13→03:42)
[2019-06-05] MEDS ORDERED: *HR* Meperidine 25 MG/ML SYRINGE IVP PRN (03:48)
[2019-06-05] MEDS ORDERED: *HR* FentaNYL (PF) 100 MCG/2 ML VIAL IVP PRN (03:48)
[2019-06-05] MEDS ORDERED: *HR* HYDROmorphone (PF) 1 MG/ML SYRINGE IVP PRN ×2 (03:48)
[2019-06-05] MEDS ORDERED: Nicotine 2 MG GUM BC PRN (03:48)
[2019-06-05] MEDS ORDERED: Acetaminophen IV 1,000 MG/100 ML INFUS..BTL IVPB ONE (03:48)
[2019-06-05] MEDS ORDERED: Naloxone 0.4 MG/ML INJ IVP PRN (03:48)
[2019-06-05] MEDS ORDERED: Ketorolac 15 MG/ML VIAL IVP PRN (03:48)
[2019-06-05] MEDS ORDERED: Ondansetron ODT 4 MG TAB.RAPDIS SL PRN (03:48)
[2019-06-05] MEDS ORDERED: *HR* Promethazine 25 MG/ML VIAL IVP PRN ×2 (03:48)
[2019-06-05] MEDS ORDERED: Ringers Solution, Lactated 1,000 ML ONE (03:52)
[2019-06-05 04:58] LABS: Hematocrit 35.9 % (37.5-50.1); Mean Corpuscular Hemoglobin 32.9 pg (28.0-33.3); Mean Corpuscular Volume 96.8 fL (83.0-100.0); Mean Platelet Volume 11.7 fL (9.4-12.4); Platelet Count 202 K/mcL (140-400); Red Blood Count 3.71 M/mcL (4.19-5.50); Red Cell Distribution Width 12.3 % (11.5-14.5); White Blood Count 9.7 K/mcL (4.3-11.1)
[2019-06-05 05:05] LABS: Hemoglobin 12.2 g/dL (12.9-16.9)
[2019-06-05] MEDS: *HR* Heparin 5,000 UNIT/ML VIAL SQ SCH ×2 (05:21→16:39)
[2019-06-05] MEDS ORDERED: ceFAZolin 2,000 MG in Water for inj. (sterile) 10 ML IVP SCH (08:00)
[2019-06-05] MEDS: Nicotine 14 MG PATCH.TD24 TD SCH (10:25)
[2019-06-05] MEDS ORDERED: *HR* OxyCODONE Immed Rel 5 MG TABLET PO SCH (21:00)
[2019-06-05] MEDS: *HR* HYDROcodone/Acet 5/325 mg TABLET PO PRN (23:13)
[2019-06-06] MEDS: *HR* OxyCODONE Immed Rel 5 MG TABLET PO PRN ×4 (01:21→23:46)
[2019-06-06] MEDS: *HR* HYDROcodone/Acet 5/325 mg TABLET PO PRN ×2 (04:49→20:47)
[2019-06-06] MEDS: *HR* Heparin 5,000 UNIT/ML VIAL SQ SCH ×2 (04:52→18:06)
[2019-06-06 07:27] LABS: BUN/Creatinine Ratio 18 (6-26); Blood Urea Nitrogen 18 mg/dL (8-23); Carbon Dioxide 27 mEq/L (23-29); Chloride 99 mEq/L (98-107); Glucose 113 mg/dL (70-105); Hemoglobin 11.4 g/dL (12.9-16.9); Immature Platelets 11.2 % (1.1-6.1); Mean Corpuscular HGB Conc 36.8 g/dL (31.6-35.5); Mean Corpuscular Hemoglobin 33.5 pg (28.0-33.3); Mean Corpuscular Volume 91.2 fL (83.0-100.0); Osmolality,Calculated 281 (280-300); Potassium 3.8 mEq/L (3.5-5.1); Red Blood Count 3.4 M/mcL (4.19-5.50); Red Cell Distribution Width 12.2 % (11.5-14.5); Sodium 134 mEq/L (136-145); White Blood Count 9.4 K/mcL (4.3-11.1); eGFR For African Americans > 60 (> 60); eGFR For Non-African Americans > 60 (> 60)
[2019-06-06] MEDS: Nicotine 14 MG PATCH.TD24 TD SCH (11:16)
[2019-06-07] MEDS: *HR* Heparin 5,000 UNIT/ML VIAL SQ SCH ×2 (05:43→16:16)
[2019-06-07] MEDS: *HR* OxyCODONE Immed Rel 5 MG TABLET PO PRN ×3 (09:30→19:38)
[2019-06-07] MEDS: Nicotine 14 MG PATCH.TD24 TD SCH (09:31)
[2019-06-07] MEDS: *HR* HYDROcodone/Acet 5/325 mg TABLET PO PRN (11:01)
[2019-06-07] MEDS ORDERED: *HR* HYDROmorphone 2 MG TABLET PO ONE (20:47)
[2019-06-08] MEDS: *HR* OxyCODONE Immed Rel 5 MG TABLET PO PRN ×5 (02:54→21:43)
[2019-06-08] MEDS: *HR* Heparin 5,000 UNIT/ML VIAL SQ SCH ×2 (05:18→17:17)
[2019-06-08] MEDS: Nicotine 14 MG PATCH.TD24 TD SCH (08:37)
[2019-06-09] MEDS: *HR* OxyCODONE Immed Rel 5 MG TABLET PO PRN ×5 (01:28→22:15)
[2019-06-09 01:42] LABS: Mean Platelet Volume 12.1 fL (9.4-12.4)
[2019-06-09 01:57] LABS: Hematocrit 35.6 % (37.5-50.1); Hemoglobin 12.7 g/dL (12.9-16.9); Mean Corpuscular HGB Conc 35.7 g/dL (31.6-35.5); Mean Corpuscular Volume 92.5 fL (83.0-100.0); Platelet Count 322 K/mcL (140-400); Red Blood Count 3.85 M/mcL (4.19-5.50); White Blood Count 9.4 K/mcL (4.3-11.1)
[2019-06-09 02:07] LABS: BUN/Creatinine Ratio 17 (6-26); Blood Urea Nitrogen 16 mg/dL (8-23); Calcium 9.9 mg/dL (8.6-10.3); Carbon Dioxide 23 mEq/L (23-29); Chloride 98 mEq/L (98-107); Glucose 111 mg/dL (70-105); Osmolality,Calculated 268 (280-300); Potassium 4.2 mEq/L (3.5-5.1); Sodium 128 mEq/L (136-145); eGFR For African Americans > 60 (> 60); eGFR For Non-African Americans > 60 (> 60)
[2019-06-09] MEDS: *HR* Heparin 5,000 UNIT/ML VIAL SQ SCH ×2 (05:20→17:31)
[2019-06-09] MEDS: Nicotine 14 MG PATCH.TD24 TD SCH (10:07)
[2019-06-09] MEDS: *HR* HYDROcodone/Acet 5/325 mg TABLET PO PRN (20:15)
[2019-06-10] MEDS: *HR* OxyCODONE Immed Rel 5 MG TABLET PO PRN ×4 (02:52→20:19)
[2019-06-10] MEDS ORDERED: *HR* FentaNYL (PF) 100 MCG/2 ML VIAL ONE ×2 (07:02→09:48)
[2019-06-10] MEDS ORDERED: Lidocaine -MPF 4% 5 ML AMPUL ONE (07:02)
[2019-06-10] MEDS ORDERED: *HR* Rocuronium Bromide 50 MG/5 ML VIAL ONE (07:02)
[2019-06-10] MEDS ORDERED: Lidocaine -MPF 2% 2 ML VIAL ONE (07:02)
[2019-06-10] MEDS ORDERED: Ondansetron 4 MG/2 ML VIAL ONE (07:02)
[2019-06-10] MEDS ORDERED: *HR* Propofol 200 MG/20 ML VIAL IVP ONE (07:02)
[2019-06-10] MEDS ORDERED: *HR* Midazolam HCl 2 MG/2 ML VIAL ONE (07:02)
[2019-06-10] MEDS ORDERED: *HR* Succinylcholine 200 MG/10 ML VIAL IVP ONE (07:02)
[2019-06-10] MEDS ORDERED: Dexamethasone 4 MG/ML VIAL ONE (07:02)
[2019-06-10] MEDS ORDERED: Clindamycin 900 MG/50 ML 900 MG/50 ML IV.SOLN IVPB ONE (07:40)
[2019-06-10] MEDS ORDERED: Ropivacaine/PF 0.5% 30 ML VIAL ONE (07:53)
[2019-06-10] MEDS ORDERED: Acetaminophen IV 1,000 MG/100 ML INFUS..BTL IVPB ONE (08:00)
[2019-06-10] MEDS ORDERED: Acetaminophen IV 1,000 MG/100 ML INFUS..BTL ONE (08:21)
[2019-06-10] MEDS ORDERED: *HR* Promethazine 25 MG/ML VIAL IVP PRN (10:34)
[2019-06-10] MEDS ORDERED: *HR* HYDROmorphone 2 MG TABLET PO PRN (10:34)
[2019-06-10] MEDS ORDERED: *HR* Labetalol 20 MG/4 ML SYRINGE IVP PRN (10:34)
[2019-06-10] MEDS ORDERED: *HR* OxyCODONE Immed Rel 5 MG TABLET PO PRN (10:34)
[2019-06-10] MEDS: *HR* HYDROmorphone (PF) 1 MG/ML SYRINGE IVP PRN ×2 (11:01→11:11)
[2019-06-10] MEDS ORDERED: Naloxone 0.4 MG/ML INJ IVP PRN (11:32)
[2019-06-10] MEDS ORDERED: Nicotine 2 MG GUM BC PRN (11:32)
[2019-06-10] MEDS ORDERED: Ondansetron ODT 4 MG TAB.RAPDIS SL PRN (11:32)
[2019-06-10] MEDS ORDERED: *HR* HYDROcodone/Acet 5/325 mg TABLET PO PRN (11:32)
[2019-06-10] MEDS: Clindamycin 900 MG/50 ML 900 MG/50 ML IV.SOLN IVPB SCH (16:01)
[2019-06-10 16:31] LABS: Hematocrit 34.5 % (37.5-50.1); Hemoglobin 12.3 g/dL (12.9-16.9); Mean Corpuscular HGB Conc 35.7 g/dL (31.6-35.5); Mean Corpuscular Hemoglobin 32.1 pg (28.0-33.3); Mean Corpuscular Volume 90.1 fL (83.0-100.0); Mean Platelet Volume 11.7 fL (9.4-12.4); Platelet Count 366 K/mcL (140-400); Red Blood Count 3.83 M/mcL (4.19-5.50); Red Cell Distribution Width 11.9 % (11.5-14.5)
[2019-06-10 16:43] LABS: BUN/Creatinine Ratio 20 (6-26); Blood Urea Nitrogen 19 mg/dL (8-23); Calcium 9.9 mg/dL (8.6-10.3); Carbon Dioxide 23 mEq/L (23-29); Chloride 94 mEq/L (98-107); Glucose 131 mg/dL (70-105); Osmolality,Calculated 272 (280-300); Potassium 4.3 mEq/L (3.5-5.1); Sodium 129 mEq/L (136-145); eGFR For African Americans > 60 (> 60); eGFR For Non-African Americans > 60 (> 60)
[2019-06-11] MEDS: *HR* OxyCODONE Immed Rel 5 MG TABLET PO PRN ×5 (00:13→18:10)
[2019-06-11] MEDS: Clindamycin 900 MG/50 ML 900 MG/50 ML IV.SOLN IVPB SCH ×2 (00:14→09:43)
[2019-06-11] MEDS: Artificial Tears SOLN 15 ML BOTTLE BOTH EYES SCH ×5 (00:37→21:40)
[2019-06-11 01:22] LABS: Hematocrit 31.9 % (37.5-50.1); Hemoglobin 11.1 g/dL (12.9-16.9); Mean Corpuscular HGB Conc 34.8 g/dL (31.6-35.5); Mean Corpuscular Hemoglobin 32.1 pg (28.0-33.3); Mean Corpuscular Volume 92.2 fL (83.0-100.0); Mean Platelet Volume 11.7 fL (9.4-12.4); Platelet Count 335 K/mcL (140-400); Red Blood Count 3.46 M/mcL (4.19-5.50); Red Cell Distribution Width 11.9 % (11.5-14.5); White Blood Count 12.1 K/mcL (4.3-11.1)
[2019-06-11] MEDS: *HR* Enoxaparin 30 MG/0.3 ML SYRINGE SQ SCH ×2 (06:07→18:10)
[2019-06-11] MEDS: Nicotine 14 MG PATCH.TD24 TD SCH ×2 (09:43→12:53)
[2019-06-11] MEDS ORDERED: Melatonin 3 MG TABLET PO PRN (18:06)
[2019-06-11] MEDS: traZODone 50 MG TABLET PO PRN (21:40)
[2019-06-12] MEDS: *HR* OxyCODONE Immed Rel 5 MG TABLET PO PRN ×5 (00:01→19:20)
[2019-06-12 01:17] LABS: Hematocrit 30.7 % (37.5-50.1); Hemoglobin 10.4 g/dL (12.9-16.9); Mean Corpuscular HGB Conc 33.9 g/dL (31.6-35.5); Mean Corpuscular Hemoglobin 31.5 pg (28.0-33.3); Mean Platelet Volume 11.8 fL (9.4-12.4); Platelet Count 324 K/mcL (140-400); White Blood Count 9.2 K/mcL (4.3-11.1)
[2019-06-12 01:35] LABS: BUN/Creatinine Ratio 23 (6-26); Blood Urea Nitrogen 18 mg/dL (8-23); Calcium 9.1 mg/dL (8.6-10.3); Carbon Dioxide 25 mEq/L (23-29); Chloride 96 mEq/L (98-107); Glucose 100 mg/dL (70-105); Osmolality,Calculated 272 (280-300); Sodium 130 mEq/L (136-145); eGFR For African Americans > 60 (> 60); eGFR For Non-African Americans > 60 (> 60)
[2019-06-12] MEDS: *HR* Enoxaparin 30 MG/0.3 ML SYRINGE SQ SCH ×2 (05:55→19:21)
[2019-06-12] MEDS: Artificial Tears SOLN 15 ML BOTTLE BOTH EYES SCH ×4 (10:27→20:53)
[2019-06-12] MEDS: Nicotine 14 MG PATCH.TD24 TD SCH (10:31)
[2019-06-12] MEDS: traZODone 50 MG TABLET PO PRN (21:51)
[2019-06-13] MEDS: *HR* OxyCODONE Immed Rel 5 MG TABLET PO PRN ×4 (02:51→16:36)
[2019-06-13] MEDS: *HR* Enoxaparin 30 MG/0.3 ML SYRINGE SQ SCH ×2 (05:40→16:28)
[2019-06-13] MEDS: Nicotine 14 MG PATCH.TD24 TD SCH (08:17)
[2019-06-13] MEDS: Artificial Tears SOLN 15 ML BOTTLE BOTH EYES SCH ×3 (12:34→19:43)
[2019-06-13] MEDS: traZODone 50 MG TABLET PO PRN (22:48)
[2019-06-14] MEDS: *HR* Enoxaparin 30 MG/0.3 ML SYRINGE SQ SCH (05:58)
[2019-06-14] MEDS: *HR* OxyCODONE Immed Rel 5 MG TABLET PO PRN (05:58)
[2019-06-14] MEDS ORDERED: *HR* OxyCODONE Immed Rel 5 MG TABLET PO PRN (08:12)
[2019-06-14] MEDS: Nicotine 14 MG PATCH.TD24 TD SCH (09:03)
[2019-06-14] MEDS: Artificial Tears SOLN 15 ML BOTTLE BOTH EYES SCH ×2 (09:03→13:12)
[2019-06-14 12:02] VITALS: BP 136/72
[2019-06-14] MEDS ORDERED: FLU Vac QV 19-20 (6Month+)/PF 0.5 ML SYRINGE IM ONE (13:19)
== END 2019-06-14 15:39 | DRG 309 ==
LOC: 3NENU → SUATTDRO 06-02 06:24 → 3NENU 06-02 22:50
PROVIDERS: ADMIT Internal Medicine; ATTEND Internal Medicine

== ENCOUNTER 2020-10-26 13:27 | Observation (INO) ==
[2020-10-26] MEDS ORDERED: Naloxone 0.4 MG/ML INJ IVP PRN (15:59)
[2020-10-26] MEDS ORDERED: Acetaminophen 325 MG TABLET PO PRN (15:59)
[2020-10-26] MEDS ORDERED: Melatonin 3 MG TABLET PO PRN (15:59)
[2020-10-26] MEDS ORDERED: Ondansetron 4 MG/2 ML VIAL IVP PRN (15:59)
[2020-10-26 16:39] LABS: Basophils # 0.1 K/mcL (0.0-0.2); Basophils % 1.3 %; Hematocrit 43.6 % (37.5-50.1); Hemoglobin 14.8 g/dL (12.9-16.9); Immature Granulocytes % 0.4 % (0-4); Lymphocytes # 1.4 K/mcL (0.6-4.6); Lymphocytes % 19.7 %; Mean Corpuscular HGB Conc 33.9 g/dL (31.6-35.5); Mean Corpuscular Hemoglobin 29.8 pg (28.0-33.3); Mean Corpuscular Volume 87.7 fL (83.0-100.0); Mean Platelet Volume 10.2 fL (9.4-12.4); Monocytes # 1.2 K/mcL (0.0-1.3); Monocytes % 17.7 %; Neutrophils # 4.2 K/mcL (1.6-8.9); Platelet Count 253 K/mcL (140-400); Red Blood Count 4.97 M/mcL (4.19-5.50); Red Cell Distribution Width 14.9 % (11.5-14.5); Segmented Neutrophils % 60.9 %
[2020-10-26 16:45] LABS: INR 1.1; Prothrombin Time 12.3 Seconds (9.4-12.1)
[2020-10-26 17:01] LABS: BUN/Creatinine Ratio 11 (6-26); Blood Urea Nitrogen 11 mg/dL (8-23); Calcium 10.2 mg/dL (8.6-10.3); Carbon Dioxide 24 mEq/L (23-29); Chloride 98 mEq/L (98-107); Glucose 104 mg/dL (70-105); Osmolality,Calculated 274 (280-300); Phosphorous 3.3 mg/dL (2.7-4.5); Potassium 4.2 mEq/L (3.5-5.1); Sodium 132 mEq/L (136-145); Troponin I < 0.03 ng/mL (< 0.04); eGFR For African Americans > 60 (> 60); eGFR For Non-African Americans > 60 (> 60)
[2020-10-26] MEDS ORDERED: Perflutren Lipid Microsphere 1.3 ML in 0.9 % Sodium Chloride 8.7 ML IVP PRN (19:22)
[2020-10-27 02:10] LABS: Basophils # 0.1 K/mcL (0.0-0.2); Basophils % 1.3 %; Eosinophils # 0.5 K/mcL (0.0-0.6); Hematocrit 42.8 % (37.5-50.1); Hemoglobin 14.5 g/dL (12.9-16.9); Immature Granulocytes % 0.3 % (0-4); Lymphocytes # 1.8 K/mcL (0.6-4.6); Lymphocytes % 25.2 %; Mean Corpuscular HGB Conc 33.9 g/dL (31.6-35.5); Mean Corpuscular Volume 88.4 fL (83.0-100.0); Mean Platelet Volume 10.1 fL (9.4-12.4); Monocytes # 1.2 K/mcL (0.0-1.3); Monocytes % 16.2 %; Neutrophils # 3.6 K/mcL (1.6-8.9); Nucleated Red Blood Cells 0.3 /100 WBC (0); Platelet Count 228 K/mcL (140-400); Red Blood Count 4.84 M/mcL (4.19-5.50); White Blood Count 7.2 K/mcL (4.3-11.1)
[2020-10-27 02:43] LABS: Alanine Aminotransferase 39 Units/L (7-52); Albumin 4.3 g/dL (3.5-5.7); Albumin/Globulin Ratio 1.4 (1.1-2.2); Alkaline Phosphatase 90 Units/L (34-104); Aspartate Amino Transferase 42 Units/L (13-39); BUN/Creatinine Ratio 13 (6-26); Bilirubin,Direct 0.2 mg/dL (0.0-0.2); Bilirubin,Indirect 0.5 mg/dL (0.0-1.0); Bilirubin,Total 0.7 mg/dL (0.3-1.0); Blood Urea Nitrogen 13 mg/dL (8-23); Carbon Dioxide 25 mEq/L (23-29); Chloride 98 mEq/L (98-107); Globulin 3.1 g/dL (2.4-3.5); Glucose 97 mg/dL (70-105); Osmolality,Calculated 274 (280-300); Potassium 4.1 mEq/L (3.5-5.1); Sodium 132 mEq/L (136-145); Total Protein 7.4 g/dL (6.4-8.9); eGFR For African Americans > 60 (> 60); eGFR For Non-African Americans > 60 (> 60)
[2020-10-27 02:44] LABS: Calcium 9.9 mg/dL (8.6-10.3)
[2020-10-27] MEDS: *HR* HYDROcodone/Acet 7.5/325 mg TABLET PO PRN ×3 (10:17→23:05)
[2020-10-27] MEDS ORDERED: Naloxone 0.4 MG/ML INJ IVP PRN (11:51)
[2020-10-27] MEDS ORDERED: hydroCHLOROthiazide 25 MG TABLET PO SCH (15:30)
[2020-10-28 03:28] LABS: Basophils # 0.1 K/mcL (0.0-0.2); Eosinophils # 0.4 K/mcL (0.0-0.6); Eosinophils % 5.4 %; Hematocrit 43.9 % (37.5-50.1); Hemoglobin 14.9 g/dL (12.9-16.9); Immature Granulocytes % 0.1 % (0-4); Lymphocytes # 2.3 K/mcL (0.6-4.6); Lymphocytes % 29.2 %; Mean Corpuscular HGB Conc 33.9 g/dL (31.6-35.5); Mean Corpuscular Hemoglobin 29.9 pg (28.0-33.3); Mean Corpuscular Volume 88.2 fL (83.0-100.0); Mean Platelet Volume 10.8 fL (9.4-12.4); Monocytes # 1.1 K/mcL (0.0-1.3); Monocytes % 13.7 %; Platelet Count 225 K/mcL (140-400); Red Blood Count 4.98 M/mcL (4.19-5.50); Red Cell Distribution Width 14.6 % (11.5-14.5); Segmented Neutrophils % 50.6 %; White Blood Count 7.9 K/mcL (4.3-11.1)
[2020-10-28 03:44] LABS: BUN/Creatinine Ratio 12 (6-26); Blood Urea Nitrogen 13 mg/dL (8-23); Calcium 9.8 mg/dL (8.6-10.3); Carbon Dioxide 27 mEq/L (23-29); Chloride 95 mEq/L (98-107); Glucose 94 mg/dL (70-105); Osmolality,Calculated 270 (280-300); Potassium 4.3 mEq/L (3.5-5.1); Sodium 130 mEq/L (136-145); eGFR For African Americans > 60 (> 60); eGFR For Non-African Americans > 60 (> 60)
[2020-10-28] MEDS: *HR* HYDROcodone/Acet 7.5/325 mg TABLET PO PRN ×3 (05:21→19:49)
[2020-10-28] MEDS: Ascorbic Acid 500 MG TABLET PO SCH (08:32)
[2020-10-28] MEDS: Aspirin Enteric Coated 81 MG Tablet PO SCH (08:32)
[2020-10-28] MEDS: Cholecalciferol (D-3) 1,000 UNIT (25MCG) TABLET PO SCH (08:32)
[2020-10-28] MEDS: Thiamine (B-1) 100 MG TABLET PO SCH (08:32)
[2020-10-28 09:36] LABS: Sodium, Urine 39.8 mEq/L
[2020-10-28] MEDS ORDERED: 0.9 % Sodium Chloride 1,000 ML IVC SCH (12:45)
[2020-10-28 14:49] LABS: Amphetamine Screen,Urine Negative ng/mL (Cutoff=1000); Barbiturate Screen,Urine Negative ng/mL (Cutoff=200); Benzodiazepines Screen,Urine Negative ng/mL (Cutoff=200); Cannabinoid Screen,Urine Positive ng/mL (Cutoff = 50); Cocaine Screen,Urine Negative ng/mL (Cutoff= 300); Opiate Screen,Urine Positive ng/mL (Cutoff=300); Phencyclidine Screen,Urine Negative ng/mL (Cutoff=25)
[2020-10-29] MEDS: *HR* HYDROcodone/Acet 7.5/325 mg TABLET PO PRN ×2 (03:31→09:33)
[2020-10-29] MEDS: Cholecalciferol (D-3) 1,000 UNIT (25MCG) TABLET PO SCH (07:32)
[2020-10-29] MEDS: Ascorbic Acid 500 MG TABLET PO SCH (07:32)
[2020-10-29] MEDS: Aspirin Enteric Coated 81 MG Tablet PO SCH (07:32)
[2020-10-29] MEDS: Thiamine (B-1) 100 MG TABLET PO SCH (07:32)
[2020-10-29 07:41] LABS: BUN/Creatinine Ratio 15 (6-26); Blood Urea Nitrogen 15 mg/dL (8-23); Calcium 9.8 mg/dL (8.6-10.3); Carbon Dioxide 28 mEq/L (23-29); Chloride 99 mEq/L (98-107); Glucose 83 mg/dL (70-105); Osmolality,Calculated 274 (280-300); Phosphorous 3.8 mg/dL (2.7-4.5); Potassium 4.6 mEq/L (3.5-5.1); Sodium 132 mEq/L (136-145); eGFR For African Americans > 60 (> 60); eGFR For Non-African Americans > 60 (> 60)
[2020-10-29 10:58] VITALS: BP 158/76
== END 2020-10-29 15:53 | disposition home or self-care (01) ==
LOC: 3BNU → SUATTDRO 15:28
PROVIDERS: ADMIT Pharmacist; ATTEND Internal Medicine